=== PATIENT | female | born 1975 | race Caucasian/White ===

== ENCOUNTER 2020-09-02 17:19 | Emergency (ER) | payer SELFPAY ==
[2020-09-02 17:26] VITALS: BP 124/69; PULSE 120; RESP 18; TEMP 37.5; O2SAT 99
--- NOTE | 2020-09-02 17:42 | DI.US.S_ITS ---
PROCEDURE: US OB LIMITED INDICATIONS: bleeding,19 weeks OUTSIDE/PRIOR DATING DATA: Last menstrual period (LMP): 04/18/2020 . LMP-based estimated date of delivery (MAINE): 01/23/2021 . First dating scan (date and location): N/A . Estimated date of delivery (MAINE) from first dating scan: N/A . TECHNIQUE: Real-time scanning was performed of the fetus, with image documentation. COMPARISON: None. FINDINGS: There is a nonviable 2nd trimester intrauterine gestation. IMPRESSION: Intrauterine demise. Comment: Preliminary findings were reported by the mid teacher to the referring provider at the time of study completion. Dictated by: Damien Kaur M.D. on 09/02/2020 at 20:08 Approved by: Damien Kaur M.D. on 09/02/2020 at 20:09
--- NOTE | 2020-09-02 18:13 | PC.NURSE ---
Pt declined blood draw until she discusses with Dr Traylor
[2020-09-02 20:00] LABS: Add Manual Diff / Slide Review NO; Basophils Absolute Auto 0 /uL (0-100); Basophils Percent Auto 0.3 % (0-2); Eosinophils Absolute Auto 0 /uL (0-450); Eosinophils Percent Auto 0.2 % (2-4); Hematocrit 39.2 % (36-46); Hemoglobin 13.1 g/dL (12.0-16.0); Lymphocytes Absolute Auto 900 /uL (1100-4500); Lymphocytes Percent Auto 8.6 % (25-40); Mean Corpuscular HGB Conc 33.6 % (30-36); Mean Corpuscular Hemoglobin 30.2 PG (26-34); Mean Corpuscular Volume 90.1 fL (80-100); Monocytes Absolute Auto 600 /uL (0-900); Monocytes Percent Auto 5.7 % (3-14); Neutrophils Absolute Auto 9400 /uL (1500-7000); Neutrophils Percent Auto 85.2 % (50-75); Platelet Count 227 X10^3/uL (150-400); Red Blood Cell Count 4.35 X10^6/uL (4.0-5.2); Red Cell Distribution Width 13.8 % (11.6-14.8)
[2020-09-02 20:09] LABS: Prothrombin Time 11.2 SECONDS (10.1-12.7)
[2020-09-02] MEDS: SODIUM CHLORIDE 0.9% 1,000 ML 1000 ML IV (20:09)
[2020-09-02 20:12] LABS: PTT Partial Thromboplastin Tim 26 SECONDS (26.4-36.2)
[2020-09-02 20:14] LABS: Fibrinogen 343 mg/dL (211-428)
[2020-09-02 20:18] LABS: Alanine Aminotransferase 12 IU/L (<35); Albumin Globulin Ratio 1.4 (1.0-2.8); Alkaline Phosphatase 67 U/L (38-126); Aspartate Aminotransferase 25 IU/L (14-36); BUN Creatinine Ratio 12.5 (6-22); Bilirubin Total 0.3 mg/dL (0.2-1.3); Blood Urea Nitrogen 5 mg/dL (7-17); Calcium 9.6 mg/dL (8.4-10.2); Carbon Dioxide 21 mmol/L (22-32); Chloride 109 mmol/L (98-107); Estimated Glomerular Filt Rate > 60.0 mL/min (>60); Globulin 2.9 g/dL (1.7-4.1); Glucose 94 mg/dL (70-100); HEMOLYSIS < 15 (0-50); Potassium 3.6 mmol/L (3.4-5.1); Sodium 140 mmol/L (137-145); Total Protein 6.9 g/dL (6.3-8.2)
[2020-09-02 20:19] LABS: D Dimer 3223 ng/mL (<230)
[2020-09-02 20:35] LABS: HCG Quantitative /Beta subunit 70.4 mIU/mL
[2020-09-02 20:56] LABS: COVID19 - ADMIT (NP swab/PCR) Negative (Negative)
--- NOTE | 2020-09-02 21:03 | ED.GENADULT ---
HPI - General Adult General Chief complaint: Urogenital-Female Stated complaint: needs US - 19 weeks Time Seen by Provider: 09/02/20 17:55 Source: patient Mode of arrival: Ambulatory Limitations: no limitations History of Present Illness HPI narrative: 45-year-old presented to her provider in [place] noting spotting and cramping. heart rate was not able to be appreciated in she was sent to the emergency room for further evaluation. She describes no fevers, chills, vomiting, diarrhea. She has had no cough no dyspnea. She does not complain of contractions but does note menstrual like cramping. Her other pregnancies have been relatively uncomplicated she has had 4 vaginal births and 2 Caesarean sections. Because her births have gone so well and her pregnancies have been uncomplicated she typically does not establish care with an OBGYN until after 20 weeks gestational age. She was planning to see an OB provider in [place] next week and was planning to a ventrally deliver in [place] as well. Related Data Allergies Allergy/AdvReac Type Severity Reaction Status Date / Time tetanus and diphtheria Allergy Unknown Verified 09/02/20 17:33 toxoids Review of Systems Review of Systems Narrative: Remainder of complete review of systems is otherwise unremarkable except for that included in the HPI. Patient History Social History Smoking Status: Never smoker Smoking Status: Never smoker Substance Use Type: does not use Exam Narrative Exam Narrative: General: Pale, anxious appearing but no acute distress. Able to give a complete and coherent history. Well-nourished well-developed HEENT: Moist mucous membranes, normal sclera with reactive pupils, Respiratory: Lungs are clear to auscultation, no wheezing no rales no rhonchi. Full and symmetrical air movement Cardiac: Regular rate and rhythm no murmurs no bruits Abdomen: Soft, gravid with fundus at approximately the level of the umbilicus, mild lower pelvic tenderness, good bowel tones, no flank pain Skin: Warm and dry, no rashes Neurologic: Grossly neurologically intact with no obvious asymmetries or abnormalities Extremities: No trauma, well perfused Psych: Cooperative, appropriate insight and affect Initial Vital Signs Initial Vital Signs: Vital Signs Temperature 99.5 F 09/02/20 17:26 Pulse Rate 120 H 09/02/20 17:26 Respiratory Rate 18 09/02/20 17:26 Blood Pressure 124/69 09/02/20 17:26 Pulse Oximetry 99 09/02/20 17:26 Course Orders Ordered: Discontinued Medications Sodium Chloride (Normal Saline 0.9%) 1,000 mls @ 1,000 mls/hr IV BOLUS ONE Stop: 09/02/20 18:54 Last Infusion: 09/02/20 21:19 Dose: 0 mls/hr Documented by: Admin: 09/02/20 20:09 Dose: 1,000 mls/hr Documented by: SANDHYA Vital Signs Vital signs: Vital Signs - 8 hr 09/02/20 21:30 09/02/20 22:00 09/02/20 23:17 Pulse Rate 106 H 102 H 96 H Blood Pressure 117/64 114/68 121/78 Pulse Oximetry 100 100 99 Medical Decision Making Medical Records Medical records reviewed: Yes I reviewed the patient's medical records. Lab Data Lab results reviewed: Yes I reviewed the patient's lab results. Result diagrams: 09/02/20 19:45 09/02/20 19:45 Labs: Lab Results 09/02/20 09/02/20 09/02/20 Range/Units 19:45 19:45 19:45 WBC 11.0 (4.5-11.0) X10^3/uL RBC 4.35 (4.0-5.2) X10^6/uL Hgb 13.1 (12.0-16.0) g/dL Hct 39.2 (36-46) % MCV 90.1 (80-100) fL MCH 30.2 (26-34) PG MCHC 33.6 (30-36) % RDW 13.8 (11.6-14.8) % Plt Count 227 (150-400) X10^3/uL Neut % (Auto) 85.2 H (50-75) % Lymph % (Auto) 8.6 L (25-40) % [place] % (Auto) 5.7 (3-14) % Eos % (Auto) 0.2 L (2-4) % Baso % (Auto) 0.3 (0-2) % Neut # (Auto) 9400 H (5375-4936) /uL Lymph # (Auto) 900 L (5531-6575) /uL [place] # (Auto) 600 (0-900) /uL Eos # (Auto) 0 (0-450) /uL Baso # (Auto) 0 (0-100) /uL PT (10.1-12.7) SECONDS INR (0.9-1.3) APTT (26.4-36.2) SECONDS Fibrinogen (211-428) mg/dL D-Dimer (<230) ng/mL Sodium 140 (137-145) mmol/L Potassium 3.6 (3.4-5.1) mmol/L Chloride 109 H (98-107) mmol/L Carbon Dioxide 21 L (22-32) mmol/L BUN 5 L (7-17) mg/dL Creatinine 0.40 L (0.52-1.04) mg/dL Estimated GFR > 60.0 (>60) mL/min BUN/Creatinine Ratio 12.5 (6-22) Glucose 94 (70-100) mg/dL Calcium 9.6 (8.4-10.2) mg/dL Total Bilirubin 0.3 (0.2-1.3) mg/dL AST 25 (14-36) IU/L ALT 12 (<35) IU/L Alkaline Phosphatase 67 (38-126) U/L Total Protein 6.9 (6.3-8.2) g/dL Albumin 4.0 (3.5-5.0) g/dL Globulin 2.9 (1.7-4.1) g/dL Albumin/Globulin Ratio 1.4 (1.0-2.8) HCG, Quant 70.4 mIU/mL SARS-CoV-2 (PCR) (Negative) Blood Type A Positive Antibody Screen Negative 09/02/20 09/02/20 Range/Units 19:45 19:45 WBC (4.5-11.0) X10^3/uL RBC (4.0-5.2) X10^6/uL Hgb (12.0-16.0) g/dL Hct (36-46) % MCV (80-100) fL MCH (26-34) PG MCHC (30-36) % RDW (11.6-14.8) % Plt Count (150-400) X10^3/uL Neut % (Auto) (50-75) % Lymph % (Auto) (25-40) % [place] % (Auto) (3-14) % Eos % (Auto) (2-4) % Baso % (Auto) (0-2) % Neut # (Auto) (9250-7394) /uL Lymph # (Auto) (5070-3853) /uL [place] # (Auto) (0-900) /uL Eos # (Auto) (0-450) /uL Baso # (Auto) (0-100) /uL PT 11.2 (10.1-12.7) SECONDS INR 1.0 (0.9-1.3) APTT 26 L (26.4-36.2) SECONDS Fibrinogen 343 (211-428) mg/dL D-Dimer 3223 H (<230) ng/mL Sodium (137-145) mmol/L Potassium (3.4-5.1) mmol/L Chloride (98-107) mmol/L Carbon Dioxide (22-32) mmol/L BUN (7-17) mg/dL Creatinine (0.52-1.04) mg/dL Estimated GFR (>60) mL/min BUN/Creatinine Ratio (6-22) Glucose (70-100) mg/dL Calcium (8.4-10.2) mg/dL Total Bilirubin (0.2-1.3) mg/dL AST (14-36) IU/L ALT (<35) IU/L Alkaline Phosphatase (38-126) U/L Total Protein (6.3-8.2) g/dL Albumin (3.5-5.0) g/dL Globulin (1.7-4.1) g/dL Albumin/Globulin Ratio (1.0-2.8) HCG, Quant mIU/mL SARS-CoV-2 (PCR) Negative (Negative) Blood Type Antibody Screen Imaging Data US - OB: Radiologist's Impression: FINDINGS: There is a nonviable 2nd trimester intrauterine gestation. IMPRESSION: Intrauterine demise. Comment: Preliminary findings were reported by the painting machine operator to the referring provider at the time of study completion. Dictated by: Damien Kaur M.D. on 09/02/2020 at 20:08 MDM Narrative Medical decision making narrative: 45-year-old at 19 weeks with demise and significant degradation. She has had a day of cramping in bleeding and has many questions about allowing a miscarriage to occur naturally. Have spoken with LISA Sandoval. Her recommendation is transfer to the [facility] for DME. Lab work has been obtained to check for DIC. At this point she is tachycardic, otherwise hemodynamically stable with normal blood pressure. PT PTT and fibrinogen are not elevated. D-dimer is. Remainder of chemistries are unremarkable. Long discussion regarding complications of DIC and hemorrhage in this situation. Phone call to the [facility] to see if they are able to accept her in transfer. 941pm Reviewed with [facility] transfer center. 1010pm DR Hartmann, ER RN agrees with transfer to L&D at for further evaluation. 1020 Accepted at 1030 Reviewed with patient. She had passed more clot, perpaps portions of placenta but no parts. She understands the need for transfer, the risks of heavy bleeding and need for expedited transport as a reason for not going down POV. Agreeable with plans at this time 11:00 patient got up to go to the bathroom and passed a large clot. Is further examined and is in fact the entire placenta sac and fetus still and closed completely in the sac and completely intact. Within minutes her cramping has almost entirely abated and she is having minimal bleeding at this point. Given the fact that we were planning on transfer for consideration of D&E with concern for developing DIC in the setting of demise not yet passed, with the fact that the entire fetus has now successfully passed we will at cancel plan transfer to the [facility]. With another hour of observation cramping continues to be completely abated and minimal blood flow with hemodynamic stability noted. We shared decision-making we opted to allow home discharge at this time. She is A positive, RhoGAM is not required. Did ask that she stay in town rather than return to [place] until at least tomorrow afternoon to make sure that there was no complicating factors or increased hemorrhage. She is safe for home discharge Discharge Plan Departure Patient Disposition: Home Clinical Impression: Complete miscarriage Instructions: DI for Miscarriage Activity Restrictions/Additional Instructions: Consists are this has been such a difficult day for you. Your body clearly knows how to heal and take care of itself. You have completely delivered your baby boy, he looks like he was about 15 to 16-week-old.. Your bleeding has stopped and the cramping has stopped as well. At this time with no further bleeding, completely delivered miscarriage and no additional cramping, I think it is safe for you to go home. Please week to go back to the [facility] until at least tomorrow afternoon. If you have increasing vaginal bleeding you do need to return to the emergency department for further evaluation I wish you the very best
[2020-09-02 21:09] VITALS: PULSE 112; O2SAT 100
[2020-09-02 21:30] VITALS: BP 117/64; PULSE 106; O2SAT 100
[2020-09-02 22:00] VITALS: BP 114/68; PULSE 102; O2SAT 100
[2020-09-02 23:17] VITALS: BP 121/78; PULSE 96; O2SAT 99
--- NOTE | 2020-09-02 23:25 | PC.NURSE ---
Pt used bathroom at 2235, noted to have passed a large amount of POC's. Pt was in bathroom, tearful, with her. Spouse examined POC's and opened an intact sac which contained a small baby. Family requests to have a container to take home. Remaining POC's were placed in a formalin container. Dr Traylor was notified.
== END 2020-09-02 23:45 | disposition home or self-care (01) ==
PROVIDERS: Emergency Medicine; Emergency Provider Emergency Medicine
DX: O03.9 Complete or unspecified spontaneous abortion without complication (principal); Z20.822 Contact with and (suspected) exposure to COVID-19
CPT/HCPCS: 36415; 76815; 80053; 84702; 85025; 85379; 85384; 85610; 85730; 86850; 86900; 86901; 87635; 96360; 99284; C9803